=== PATIENT | female | born 1965 | race Hispanic/Latino ===

== ENCOUNTER 2024-03-01 21:20 | Inpatient (IN) | payer MEDICAID, OTHER ==
[2024-03-01] MEDS ORDERED: Ondansetron ODT 4 MG TAB PO PRN (22:36)
[2024-03-01] MEDS ORDERED: Ketorolac Tromethamine 30 MG (1 mL) VIAL IVP PRN (22:36)
[2024-03-01] MEDS ORDERED: Ondansetron PF 4 MG/2 ML Vial IVP PRN (22:36)
[2024-03-01] MEDS ORDERED: NOREPINEPHRINE 8 MG/250 ML-D5W 250 ML IVPB SCH (22:45)
[2024-03-01] MEDS ORDERED: Indomethacin 50 MG SUPP ONE (22:55)
[2024-03-01 22:58] VITALS: BMI 26.1
[2024-03-01] MEDS ORDERED: PROPOFOL 20 ML ONE (23:00)
[2024-03-01] MEDS ORDERED: Lidocaine 1% PF 5 ML VIAL ONE (23:00)
[2024-03-01] MEDS ORDERED: Rocuronium Bromide 10 MG/ML (10ML VIAL) ONE (23:00)
[2024-03-01] MEDS ORDERED: Insulin Lispro 100 UNIT/ML 10 ML VIAL SC PRN (23:02)
[2024-03-01] MEDS ORDERED: Glucagon 1 MG/ML KIT IM PRN (23:02)
[2024-03-01] MEDS ORDERED: Dextrose 5% in Water 1,000 ML IV PRN (23:02)
[2024-03-01] MEDS ORDERED: Dextrose 50% Abboject 50 ML SYRINGE SLOW IVP PRN (23:02)
[2024-03-01] MEDS ORDERED: Iopamidol 30 ML ONE (23:07)
[2024-03-01] MEDS ORDERED: SUCCINYLCHOLINE/SOD CL,ISO/PF 200 MG/10 ML SYRINGE FS ONE (23:12)
[2024-03-01] MEDS ORDERED: Ketamine In 0.9 % NaCl 50 MG/5 ML SYRINGE ONE ×2 (23:12→23:19)
[2024-03-01] MEDS ORDERED: Vancomycin (BATCH) 2 GM in Premix 1 BAG IVPB SCH (23:15)
[2024-03-01 23:43] LABS: Lactic Acid 3.75 mmol/L (0.5-2.2)
[2024-03-01 23:48] LABS: ALT (SGPT) 146 U/L (8-55); AST (SGOT) 169 U/L (5-34); Albumin 2.6 g/dL (3.5-5.0); Alkaline Phosphatase 270 U/L (40-110); Anion Gap 15 mmol/L (10-20); BUN (Urea Nitrogen) 14 mg/dL (9.8-20.1); Bilirubin, Total 1.7 mg/dL (0.2-1.2); Calc. Creatinine Clearance 97 mL/min (70-130); Calcium 7.6 mg/dL (7.8-10.44); Carbon Dioxide 15 mmol/L (22-29); Chloride 110 mmol/L (98-107); Estimated GFR 89; Globulin 3.1 g/dL (2.4-3.5); Glucose 246 mg/dL (70-105); Potassium 3.8 mmol/L (3.5-5.1); Protein, Total 5.7 g/dL (6.0-8.3); Sodium 136 mmol/L (136-145)
[2024-03-02] MEDS ORDERED: Ondansetron PF 4 MG/2 ML Vial ONE (00:01)
[2024-03-02] MEDS ORDERED: SUGAMMADEX SODIUM 200 MG/2 ML VIAL ONE (00:02)
[2024-03-02] MEDS: Lactated Ringer's 1,000 ML IV SCH (04:35)
[2024-03-02] MEDS: Insulin Lispro 100 UNIT/ML 10 ML VIAL SC PRN (06:20)
[2024-03-02 06:28] LABS: #Basophils Less than 0.03 10x3/uL (0.0-0.2); %Basophils 0.2 % (0.0-1.0); %Eosinophils 0.2 % (0.0-10.0); %Lymphocytes 5.4 % (21.0-51.0); %Monocytes 7.2 % (0.0-10.0); %Neutrophils 86.4 % (42.0-75.0); Hematocrit 28.8 % (36.0-47.0); Hemoglobin 8.6 g/dL (12.0-16.0); Mean Corpuscular HGB CONC 29.9 g/dL (32.0-36.0); Mean Corpuscular Hemoglobin 21.8 pg (27.0-31.0); Mean Corpuscular Volume 72.9 fL (78.0-98.0); Mean Platelet Volume 9.2 fL (7.4-10.4); Platelet Count 292 10x3/uL (130-400); RBC Distribution Width 17.6 % (11.5-14.5); Red Blood Cell (RBC) Count 3.95 mill/uL (4.20-5.40)
[2024-03-02 06:36] LABS: ALT (SGPT) 131 U/L (8-55); AST (SGOT) 122 U/L (5-34); Albumin 2.3 g/dL (3.5-5.0); Alkaline Phosphatase 233 U/L (40-110); Anion Gap 11 mmol/L (10-20); BUN (Urea Nitrogen) 12 mg/dL (9.8-20.1); Calc. Creatinine Clearance 110 mL/min (70-130); Calcium 7.3 mg/dL (7.8-10.44); Carbon Dioxide 18 mmol/L (22-29); Chloride 115 mmol/L (98-107); Estimated GFR 101; Globulin 2.8 g/dL (2.4-3.5); Glucose 232 mg/dL (70-105); Magnesium 1.9 mg/dL (1.6-2.6); Potassium 3.7 mmol/L (3.5-5.1); Protein, Total 5.1 g/dL (6.0-8.3); Sodium 140 mmol/L (136-145)
[2024-03-02 06:39] LABS: Vancomycin, Random 14.8 ug/mL (See Comment)
[2024-03-02] MEDS: FLU (Fluarix Triv) TS24-25(6MOS UP)/PF 45 MCG/0.5 ML Syringe IM ONE (08:16)
[2024-03-02] MEDS: Piperacillin/Tazobactam 3.375 GM in Sodium Chloride 0.9% 100 ML IVPB SCH (08:16)
[2024-03-02] MEDS: Enoxaparin 40 MG (0.4 mL) SYRINGE SC SCH (08:16)
[2024-03-02] MEDS: Famotidine/PF 20 mg/2ml Vial SLOW IVP SCH (08:17)
[2024-03-02] MEDS: Vancomycin 1 GM in Premix 1 BAG IVPB SCH (08:25)
[2024-03-02] MEDS ORDERED: Vancomycin 1.25 GM in Sodium Chloride 0.9% 250 ML 250 ML IVPB SCH (09:00)
[2024-03-02] MEDS: diphenhydrAMINE 12.5 MG/5 ML UDCUP PO PRN (15:02)
[2024-03-02] MEDS: Vancomycin (BATCH) 1.25 GM in Premix 1 BAG IVPB SCH (20:01)
[2024-03-02] MEDS: hydrOXYzine 25 MG TAB PO PRN (20:53)
[2024-03-02] MEDS: diphenhydrAMINE 30 GM TUBE TOP PRN (21:34)
[2024-03-03] MEDS: traMADol HCl 50 MG TAB PO PRN (03:39)
[2024-03-03 05:27] LABS: #Basophils Less than 0.03 10x3/uL (0.0-0.2); %Basophils 0.3 % (0.0-1.0); %Eosinophils 1.5 % (0.0-10.0); %Lymphocytes 20.6 % (21.0-51.0); %Monocytes 9.8 % (0.0-10.0); %Neutrophils 67.1 % (42.0-75.0); Hematocrit 27.7 % (36.0-47.0); Hemoglobin 8.3 g/dL (12.0-16.0); Mean Corpuscular Hemoglobin 21.8 pg (27.0-31.0); Mean Corpuscular Volume 72.7 fL (78.0-98.0); Mean Platelet Volume 9.8 fL (7.4-10.4); Platelet Count 249 10x3/uL (130-400); RBC Distribution Width 17.5 % (11.5-14.5); Red Blood Cell (RBC) Count 3.81 mill/uL (4.20-5.40)
[2024-03-03 06:25] LABS: Hypochromia SLIGHT = 6-15 cells HPF (0-5); Microcytosis SLIGHT = 6-15 cells HPF (0-5); Platelet Adequacy Comment Platelets Normal; Polychromasia SLIGHT = 2-3 cells HPF (0-2)
[2024-03-03 06:27] LABS: ALT (SGPT) 97 U/L (8-55); AST (SGOT) 64 U/L (5-34); Albumin 2.4 g/dL (3.5-5.0); Alkaline Phosphatase 211 U/L (40-110); Anion Gap 11 mmol/L (10-20); BUN (Urea Nitrogen) 5 mg/dL (9.8-20.1); Calc. Creatinine Clearance 110 mL/min (70-130); Calcium 7.9 mg/dL (7.8-10.44); Carbon Dioxide 20 mmol/L (22-29); Chloride 113 mmol/L (98-107); Estimated GFR 101; Globulin 2.9 g/dL (2.4-3.5); Glucose 171 mg/dL (70-105); Protein, Total 5.3 g/dL (6.0-8.3); Sodium 141 mmol/L (136-145)
[2024-03-03] MEDS: Potassium Chloride 20 MEQ TAB PO SCH (11:18)
[2024-03-03] MEDS: Loratadine 10 MG TAB PO SCH (11:18)
[2024-03-03] MEDS: metFORMIN 500 MG TAB PO SCH (17:39)
[2024-03-04 05:15] LABS: #Basophils 0.03 10x3/uL (0.0-0.2); %Basophils 0.8 % (0.0-1.0); %Eosinophils 2.3 % (0.0-10.0); %Lymphocytes 32.9 % (21.0-51.0); %Monocytes 12.2 % (0.0-10.0); %Neutrophils 51.5 % (42.0-75.0); Hematocrit 29.2 % (36.0-47.0); Hemoglobin 8.7 g/dL (12.0-16.0); Mean Corpuscular HGB CONC 29.8 g/dL (32.0-36.0); Mean Corpuscular Hemoglobin 21.3 pg (27.0-31.0); Mean Corpuscular Volume 71.4 fL (78.0-98.0); Mean Platelet Volume 9.3 fL (7.4-10.4); Platelet Count 287 10x3/uL (130-400); RBC Distribution Width 17.2 % (11.5-14.5); Red Blood Cell (RBC) Count 4.09 mill/uL (4.20-5.40)
[2024-03-04 05:28] LABS: ALT (SGPT) 83 U/L (8-55); AST (SGOT) 48 U/L (5-34); Albumin 2.4 g/dL (3.5-5.0); Alkaline Phosphatase 216 U/L (40-110); Anion Gap 13 mmol/L (10-20); BUN (Urea Nitrogen) Less than 4 mg/dL (9.8-20.1); Bilirubin, Total 1.5 mg/dL (0.2-1.2); Calc. Creatinine Clearance 110 mL/min (70-130); Calcium 8.6 mg/dL (7.8-10.44); Carbon Dioxide 23 mmol/L (22-29); Chloride 105 mmol/L (98-107); Estimated GFR 101; Globulin 3.3 g/dL (2.4-3.5); Glucose 129 mg/dL (70-105); Iron 23 ug/dL (50-170); Protein, Total 5.7 g/dL (6.0-8.3); Sodium 138 mmol/L (136-145)
[2024-03-04] MEDS ORDERED: Iron Sucrose Complex 200 MG in Sodium Chloride 0.9% 100 ML IVPB SCH (08:45)
[2024-03-04] MEDS ORDERED: Amoxicillin/Potassium Clav 875 MG TAB PO SCH (09:00)
[2024-03-04] MEDS: Potassium Chloride 20 MEQ TAB PO SCH (11:37)
[2024-03-04] MEDS: Sodium Ferric Gluconate 250 MG in Sodium Chloride 0.9% 250 ML 250 ML IVPB SCH (12:31)
[2024-03-04] MEDS ORDERED: Promethazine HCl 12.5 MG in Sodium Chloride 0.9% 50 ML IVPB PRN (13:41)
[2024-03-04] MEDS: Ondansetron PF 4 MG/2 ML Vial IVP PRN (14:36)
[2024-03-04] MEDS: Piperacillin/Tazobactam 3.375 GM in Sodium Chloride 0.9% 100 ML IVPB SCH (17:27)
[2024-03-04] MEDS ORDERED: Acetaminophen 650 MG Suppository PR PRN (22:29)
[2024-03-04] MEDS: Ibuprofen 200 MG TAB PO PRN (22:40)
[2024-03-05 05:54] LABS: #Basophils 0.06 10x3/uL (0.0-0.2); %Basophils 1.3 % (0.0-1.0); %Eosinophils 2.9 % (0.0-10.0); %Lymphocytes 27.7 % (21.0-51.0); %Monocytes 12.6 % (0.0-10.0); %Neutrophils 55.1 % (42.0-75.0); Hemoglobin 9.1 g/dL (12.0-16.0); Mean Corpuscular HGB CONC 30.3 g/dL (32.0-36.0); Mean Corpuscular Hemoglobin 21.7 pg (27.0-31.0); Mean Corpuscular Volume 71.4 fL (78.0-98.0); Mean Platelet Volume 8.9 fL (7.4-10.4); Platelet Count 285 10x3/uL (130-400); RBC Distribution Width 17.5 % (11.5-14.5)
[2024-03-05 06:07] LABS: Anion Gap 14 mmol/L (10-20); BUN (Urea Nitrogen) Less than 4 mg/dL (9.8-20.1); Calc. Creatinine Clearance 108 mL/min (70-130); Calcium 8.8 mg/dL (7.8-10.44); Carbon Dioxide 22 mmol/L (22-29); Chloride 107 mmol/L (98-107); Estimated GFR 101; Glucose 109 mg/dL (70-105); Magnesium 1.5 mg/dL (1.6-2.6); Potassium 3.2 mmol/L (3.5-5.1); Sodium 140 mmol/L (136-145)
[2024-03-05 06:08] LABS: ALT (SGPT) 66 U/L (8-55); AST (SGOT) 37 U/L (5-34); Albumin 2.6 g/dL (3.5-5.0); Alkaline Phosphatase 205 U/L (40-110); Bilirubin, Total 1.5 mg/dL (0.2-1.2); Protein, Total 5.9 g/dL (6.0-8.3)
[2024-03-05] MEDS: Lisinopril 5 MG TAB PO SCH (08:12)
[2024-03-05] MEDS: Ferrous Sulfate 325 MG TAB PO SCH (08:12)
[2024-03-05] MEDS ORDERED: Amlodipine 5 MG TAB PO SCH (09:00)
[2024-03-05] MEDS: Potassium Chloride 20 MEQ TAB PO SCH ×2 (12:03→17:23)
[2024-03-05] MEDS: Magnesium Sulfate In Water 4 GM in Premix 1 BAG IVPB SCH (12:03)
[2024-03-05 19:39] VITALS: BP 149/85; TEMP 98.8
[2024-03-05] MEDS: Multivit, Therapeutic 1 TAB PO SCH (20:08)
== END 2024-03-05 21:20 | disposition short-term general hospital (02) | DRG 871 ==
LOC: CCU 22:25 → T4-A 03-02 11:38
PROVIDERS: ADMIT Internal Medicine; ATTEND Internal Medicine
PROC: 0F758ZZ Dilation of Right Hepatic Duct, Via Natural or Artificial Opening Endoscopic (ICD-10-PCS; principal; 2024-03-02)
PROC: 3E04329 Introduction of Other Anti-infective into Central Vein, Percutaneous Approach (ICD-10-PCS; 2024-03-02)
PROC: 0FC68ZZ Extirpation of Matter from Left Hepatic Duct, Via Natural or Artificial Opening Endoscopic (ICD-10-PCS; 2024-03-02)
DX: A41.9 Sepsis, unspecified organism (principal); R65.21 Severe sepsis with septic shock; K80.31 Calculus of bile duct with cholangitis, unspecified, with obstruction; E44.0 Moderate protein-calorie malnutrition; E11.9 Type 2 diabetes mellitus without complications; I10 Essential (primary) hypertension; R79.89 Other specified abnormal findings of blood chemistry; D50.9 Iron deficiency anemia, unspecified; E87.6 Hypokalemia; E83.42 Hypomagnesemia; Z79.84 Long term (current) use of oral hypoglycemic drugs; Z79.4 Long term (current) use of insulin; Z79.899 Other long term (current) drug therapy; Z90.49 Acquired absence of other specified parts of digestive tract
CPT/HCPCS: 36415; 36416; 74181; 74182; 74330; 80048; 80053; 80076; 80202; 82728; 83540; 83605; 83735; 85025; 90656; C1769; J1650; J1815; J2405; J2543; J2704; J2916; J3370; J3475; J3490; J7050; J7120; Q0163; Q9967